=== PATIENT | female | born 1960 | race African-American/Black ===

== ENCOUNTER 2016-06-09 10:55 | Day surgery (SDC) | payer OTHER ==
[2016-06-08 11:43] VITALS: BMI 33.1
[2016-06-08 11:45] VITALS: BP 155/86; PULSE 65
--- NOTE | 2016-06-08 17:59 | PREOPHP ---
DATE OF ADMISSION: 06/09/2016 REASON FOR ADMISSION: The patient will be admitted tomorrow for a total vaginal hysterectomy, anter ior repair and Melida plication. HISTORY OF PRESENT ILLNESS: This is a 55-year-old female, 5, para 2, with 3 therapeutic abo rtions, who has been menopausal for several years and been complaining of leaking urine with moderat e efforts. She was also found to have a fibroid in the uterus. She specifically has asked to have a hysterectomy at the time of the anterior repair that had been planned before her cystocele and uri nary incontinence. Alternatives, benefits of the procedures, the risks, and possible complications were discussed in detail in the office. The decision-making process was started. She was shown gra phically what it entails to have the uterus removed and anterior repair. She was told that she may need to wear a Velazquez catheter for a few days at home. All her questions were answered to her satisf action and she signed the appropriate surgical informed consent. 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 She has had a cholecystectomy. She is a chronic hypertensive, under treatment, not well co ntrolled. Denies any other medical problems including diabetes, renal disease, liver disease, thyro id disease and neurological problems. ALLERGIES: NO KNOWN ALLERGIES. FAMILY HISTORY: Noncontributory. REVIEW OF SYSTEMS: A 12-point review of systems is noncontributory. PHYSICAL EXAMINATION: GENERAL: Well-developed, obese, in no distress, alert and oriented x3, with height 5 feet 2 inches and a weight of 194 pounds. VITAL SIGNS: Showed temperature to be 98, blood pressure 161/98, respirations are 16 per minute, th e pulse is 72 per minute regular. HEENT: Within normal limits. Pupils are PERRLA. NECK: Supple. Thyroid is nonpalpable. Lymph nodes are not palpable. BREASTS: Show no masses or lumps and nipples normal. LUNGS: Clear to percussion and auscultation. HEART: Normal sinus rhythm without a murmur. ABDOMEN: Soft without organomegalies or hernias. Obese. PELVIC: Normal external genitalia. Cervix is very atrophic small with no lesions. Bimanual: Smal l fibroid in the fundus and the uterus mobile. There are no adnexal masses. EXTREMITIES: Lower extremities are within normal limits. NEUROLOGIC: Also normal. IMPRESSION: 1. Stress urinary incontinence. 2. Cystocele. Uterine fibroids. 3. Chronic hypertension. 4. Obesity. PLAN: Total vaginal hysterectomy, anterior repair and Melida plication. Dictated By: RICKEY GONZALEZ MD CR/NTS Conf#: [id number] DID#: [id number] CC: JYOTHI ESTEVES MD;*EndCC*
[~2016-06-09] VITALS: Ht 157.5 cm; Wt 89.9 kg
[2016-06-09] VITALS (22 sets, daily range): BP systolic 93–180; BP diastolic 64–92; PULSE 62–89; RESP 16–26; Ht 157.5 cm; Wt 89.9 kg
[~2016-06-09 10:55] MED LIST: LACTATED RINGER'S 1,000 ML IV* SCH; LOSA50TA6 PO
[2016-06-09] MEDS ORDERED: BUPIVACAINE 0.5%/EPI (SDV) 30 ML INJ ONE (13:04)
[2016-06-09] MEDS ORDERED: VASOPRESSIN 20 UNITS INJ ONE (13:05)
[2016-06-09] MEDS ORDERED: MIDAZOLAM 1 MG/ML 2 ML INJ ONE (13:20)
[2016-06-09] MEDS ORDERED: PROPOFOL 20 ML ONE ×2 (13:20→14:00)
[2016-06-09] MEDS ORDERED: METOCLOPRAMIDE 10 MG INJ ONE (13:20)
[2016-06-09] MEDS ORDERED: KETOROLAC 30 MG INJ ONE (13:21)
[2016-06-09] MEDS ORDERED: ROPIVACAINE 0.2% 20 ML VIAL ONE (13:47)
[2016-06-09] MEDS ORDERED: FENTAnyl 50 MCG/ML VIAL ONE (13:47)
[2016-06-09] MEDS ORDERED: CEFAZOLIN 1 GM INJ ONE (13:48)
[2016-06-09] MEDS ORDERED: HYDROmorphONE 2 MG/ML SYG ONE (14:13)
[2016-06-09] MEDS ORDERED: BUPIVACAINE 0.5%/EPI (SDV) 30 ML INJ INJ ONE (14:22)
[2016-06-09] MEDS ORDERED: VASOPRESSIN 20 UNITS INJ IV ONE (14:22)
[2016-06-09] MEDS ORDERED: HYDROmorphONE (0.2 MG/ML) 10ML SYG IV PRN ×2 (14:30)
[2016-06-09] MEDS ORDERED: DIPHENHYDRAMINE 50 MG INJ IV PRN (14:30)
[2016-06-09] MEDS ORDERED: ONDANSETRON 4 MG INJ IV PRN ×3 (14:30→16:00)
[2016-06-09] MEDS ORDERED: MEPERIDINE 25 MG INJ IV PRN (14:30)
[2016-06-09] MEDS ORDERED: METOCLOPRAMIDE 10 MG INJ IV PRN (14:30)
[2016-06-09] MEDS ORDERED: morphine SULFATE/PF (10 MG/10 ML) INJ ONE (15:12)
[2016-06-09] MEDS ORDERED: ACETAMINOPHEN 1000MG/100ML IV 100 ML ONE (15:12)
[2016-06-09] MEDS ORDERED: HYDROmorphONE 1 MG/ML SYG IV PRN ×3 (15:30)
[2016-06-09] MEDS ORDERED: NALOXONE (0.4 MG/ML) INJ IV PRN (15:30)
[2016-06-09] MEDS ORDERED: KETOROLAC 30 MG INJ IV PRN (15:30)
[2016-06-09] MEDS ORDERED: FENTAnyl 2MCG/ML-ROPIV 0.2% 100 ML BAG EPI SCH (15:30)
[2016-06-09] MEDS ORDERED: IBUPROFEN 600 MG TAB PO PRN (16:00)
[2016-06-09] MEDS ORDERED: ACETAMINOPHEN 325 MG TAB PO PRN (16:00)
[2016-06-09] MEDS ORDERED: OXYCODONE/ACETAMINOPHEN (5/325) TAB PO PRN (16:00)
[2016-06-09] MEDS: HYDROmorphONE (0.2 MG/ML) 10ML SYG IV PRN ×3 (16:26→16:43)
[2016-06-09] MEDS: ACETAMINOPHEN 1000MG/100ML IV 100 ML IVPB SCH ×2 (17:13→21:48)
--- NOTE | 2016-06-09 18:39 | OPR ---
DATE OF OPERATION: 06/09/2016 PREOPERATIVE DIAGNOSES: 1. Stress urinary incontinence. 2. Cystocele. 3. Uterine fibroids. 4. Chronic pelvic pain. POSTOPERATIVE DIAGNOSES: 1. Stress urinary incontinence. 2. Cystocele. 3. Uterine fibroids. 4. Chronic pelvic pain. OPERATION PERFORMED: Total vaginal hysterectomy, anterior repair with Melida plication. SURGEON: Rickey Fox MD. HIDE AND SKIN COLERER: JYOTHI ESTEVES MD. ANESTHESIA: Epidural and general. ANESTHESIOLOGIST: DEIDRA FRANCO MD. ESTIMATED BLOOD LOSS: 150 mL. COMPLICATIONS: None. SPECIMENS: Uterus. PROCEDURE AND FINDINGS: With the patient under epidural anesthesia and general anesthesia, she was laying on the table in the dorsal lithotomy position. Her abdomen and upper thighs were prepped wit h ChloraPrep and the perineum and vagina with Betadine. After 3 minutes, she was draped in the usua l sterile fashion for this procedure. She had a Velazquez catheter draining her bladder. A weighted po sterior retractor was placed in the posterior vaginal wall. The anterior lip of the cervix grasped with a Juventino clamp. The cervix was infiltrated with vasopressin 20 units diluted in 40 mL of saline of which half was used. Marcaine 0.5% with epinephrine also was used in the vaginal mucosa. The v aginal mucosa around the cervix was opened circumferentially. The endopelvic fascia was opened with scissors circumferentially also. The posterior cul-de-sac of Sawyer was entered with no problems. There were no adhesions of disease there. A longer deep weighted retractor was then inserted. Th e left uterosacral ligament was then identified, clamped with a Francisca clamp, cut and sutured with 0 Vicryl. This was held for reference. The cardinal ligament of the same side was then identified, clamped with Francisca clamp, cut and sutured with 0 Vicryl. The same was done on the contralateral si de. The anterior peritoneum was entered without any problems. By palpating and visualizing, this w as ascertained by the test desk operator. The uterine pedicles were identified on both sides. The left side was clamped first with Francisca clamps, cut and sutured twice with 2 sutures of 0 Vicryl. The same wa s done on the contralateral side. Then, the uterus was grasped with a towel clip in the fundus of t he uterus and was inverted out. The upper pedicle on the left side composed of the 2, the round lig ament and utero-ovarian ligament was held by Francisca clamp, cut and sutured twice with 0 Vicryl and h eld for reference. The same was done on the contralateral side and the specimen removed. There was no active bleeding from any of the pedicles. The shorter weighted retractor was placed in the post erior vaginal wall. The posterior leaf of the vaginal mucosa was then sutured with a continuous run man stitch of 2-0 chromic catgut to the peritoneal surface. Good hemostasis was obtained. The cul -de-sac of Sawyer was closed high by raising the suture of 0 Vicryl on the perineal surfaces, obtur ating possible enterocele. Both uterosacral ligaments were tied in the center. The vagina the muco sa was then closed with separate [id number] sutures of 0 Vicryl. Good hemostasis was observed. The vagina was profusely washed with warm saline. There was no active bleeding was seen. Anterio r repair was started by holding the edges of the vaginal mucosa with Allis clamps. It was infiltrat ed with a solution of 0.5% Marcaine with epinephrine, a total of 10 mL. The vaginal mucosa was open ed anteriorly in an inverted T fashion. The endopelvic fascia was dissected away from it bilaterall y. The urethrovesical angle was then identified by pulling slightly on the Velazquez filling the balloo n. Then, Melida plication was done with 1 single stitch of 0 Vicryl and was tied in the center. The excessive vaginal mucosa was then removed. The incision was closed with separate sutures of 0 Vicr yl. There was no active bleeding. There was abundant clear urine in the Velazquez bag. The vagina was profusely washed with warm saline and was suctioned out. No bleeding was observed. All the instru ments were then removed from the patient's vagina. The patient was taken to recovery room with all vital signs stable. ESTIMATED BLOOD LOSS: 150 mL of blood. Needle, sponge and instrument count at the end of the procedure was correct x3. Dictated By: RICKEY SU/ALISSON Conf#: [id number] DID#: [id number] CC: DEIDRA FRANCO MD; JYOTHI ESTEVES MD;*EndCC*
[2016-06-09] MEDS: LACTATED RINGER'S 1,000 ML IV SCH (18:41)
--- NOTE | 2016-06-09 19:33 | QN ---
Documentation Comment HTN HCX CHOLECYSTECTOMY HYSTERECTOMY PLAN PER ORDER NERI WINTERS MD Jun 09, 2016 19:33
[2016-06-09] MEDS: DIPHENHYDRAMINE 50 MG INJ IV PRN ×2 (19:44→23:59)
[2016-06-09] MEDS ORDERED: ROPIVACAINE 0.2% 100 ML INJ EPI SCH (21:30)
[2016-06-09] MEDS ORDERED: ROPIVACAINE 0.2% EPI SCH ×2 (22:00)
[2016-06-09] MEDS ORDERED: ROPIVACAINE 0.2% 100ML BAG EPI SCH (22:00)
[2016-06-09] MEDS: CEFAZOLIN 2 GM/50 ML (PMX) 50 ML IVPB SCH (22:14)
--- NOTE | 2016-06-09 23:09 | QN ---
Documentation Comment [id number] NERI WINTERS MD Jun 09, 2016 23:08
[2016-06-10] VITALS: BP 111/67; PULSE 83; RESP 18
[2016-06-10] MEDS: DIPHENHYDRAMINE 50 MG INJ IV PRN (04:49)
[2016-06-10] MEDS: ACETAMINOPHEN 1000MG/100ML IV 100 ML IVPB SCH ×4 (04:49→21:44)
--- NOTE | 2016-06-10 05:06 | CONS ---
DATE OF ADMISSION: 06/09/2016 DATE OF CONSULTATION: 06/09/2016 TYPE OF CONSULTATION: Nephrology. Thank you, Dr. Km Fox, for kindly asking me to see this patient in consultation. HISTORY OF PRESENT ILLNESS: The patient with a history of cholecystectomy, history of cervical canc er and surgery. The patient has history of stress urinary incontinence . The patient had a ut erine fibroid, chronic pelvic pain, and underwent total vaginal hysterectomy, anterior repair with K eran plication, and patient is going to be monitored. The patient has history of hypertension, but blood pressure is controlled. She does not know the name of medicine. History of cholecystectomy. ALLERGY HISTORY: DENIES. SOCIAL HISTORY: History of smoking and drinking socially. FAMILY HISTORY: Noncontributory. MEDICATION HISTORY: At home, the patient is on Losartan. The patient's blood pressure right now is 115/64. PAST SURGICAL HISTORY: As mentioned above. REVIEW OF SYSTEMS: HEENT: Unremarkable. RESPIRATORY: Unremarkable. CARDIOVASCULAR: Unremarkable. ABDOMEN: Mild lower abdominal pain. EXTREMITIES: Unremarkable. PHYSICAL EXAMINATION: GENERAL: The patient is awake, alert, not in any acute respiratory distress. VITAL SIGNS: Stable. Pulse 76, blood pressure 115/64. HEAD: Atraumatic, normocephalic. Pupils equal and reactive to light. NECK: Supple. No JVD. LUNGS: Clear. CARDIOVASCULAR: S1, S2 are normal. ABDOMEN: Soft, nontender. Bowel sounds positive. EXTREMITIES: No cyanosis, clubbing, edema. CENTRAL NERVOUS SYSTEM: The patient is awake, alert, no focal deficit. LABORATORY DATA: Reviewed from outside lab. IMPRESSION: 1. Status post vaginal hysterectomy. 2. Hypertension history. 3. History of cholecystectomy. 4. Stress incontinence history. OTHER DIAGNOSES: 1. Cystocele. 2. Uterine fibroids. 3. Chronic pelvic pain. PLAN: To continue current treatment and incentive spirometry. Blood pressure is stable at this do e. Blood pressure medicine is going to be started if needed. Laboratory data in the morning. Thank you, Dr. Km Fox, for kindly asking me to see this patient in nephrology consultation . Dictated By: NERI WINTERS MD BS/NTS Conf#: [id number] DID#: [id number]
[2016-06-10 05:50] LABS: BASOPHILS % 0.3 % (0.0-2.0); EOSINOPHILS % 0.1 % (0.0-7.0); HEMATOCRIT 33.8 % (37.0-47.0); HEMOGLOBIN 11.4 g/dl (12.0-16.0); LYMPHOCYTES # 1.6 10^3/ul (0.8-2.9); LYMPHOCYTES % 15.7 % (15.0-51.0); MEAN CORPUSCULAR HEMOGLOBIN 31.7 pg (29.0-33.0); MEAN CORPUSCULAR HGB CONC 33.7 g/dl (32.0-37.0); MEAN CORPUSCULAR VOLUME 94.1 fl (82.0-101.0); MONOCYTE # 0.8 10^3/ul (0.3-0.9); MONOCYTES % 7.3 % (0.0-11.0); NEUTROPHILS % 76.6 % (39.0-77.0); PLATELET COUNT 226 10^3/UL (140-440); RED BLOOD COUNT 3.59 10^6/ul (4.20-5.40); RED CELL DISTRIBUTION WIDTH 13.7 % (11.5-14.5); UNCORRECTED WBC 10.5 10^3/ul (4.8-10.8); WHITE BLOOD COUNT 10.5 10^3/ul (4.8-10.8)
[2016-06-10 05:58] LABS: POTASSIUM 4.3 mmol/L (3.5-5.1)
[2016-06-10 06:00] LABS: CREATININE 0.83 mg/dl (0.44-1.00)
[2016-06-10 06:02] LABS: CALCIUM 9.3 mg/dl (8.4-10.2)
[2016-06-10] MEDS: KETOROLAC 30 MG INJ IV PRN ×3 (06:07→21:44)
[2016-06-10] MEDS: CEFAZOLIN 2 GM/50 ML (PMX) 50 ML IVPB SCH ×2 (06:07→14:16)
[2016-06-10 06:14] VITALS: BP 124/62; PULSE 82; RESP 18
[2016-06-10 06:45] LABS: CONDITION 1
[2016-06-10] MEDS: PANTOPRAZOLE 40 MG INJ IV SCH (07:03)
--- NOTE | 2016-06-10 07:21 | PN ---
Date/Time of Note Date/Time of Note DATE: 06/10/16 TIME: 07:18 Assessment/Plan VTE Prophylaxis VTE Prophylaxis Intervention: ambulation, anti-embolic stocking Lines/Catheters IV Catheter Type (from Nrsg): Saline Lock Urinary Cath still in place: Yes Assessment/Plan Chief Complaint/Hosp Course Afebrile.WBC 10., Hemoglobin 11.4 Complains of itching. Problems: Assessment/Plan Itching secondary to Duramorph. Nubain 4 mg Cont'd Hospitalization Reason: Still requires IV pain meds. Exam/Review of Systems Vital Signs Vitals Vital Signs Date Time Temp Pulse Resp B/P Pulse Ox O2 Delivery O2 Flow Rate FiO2 06/10/16 06:14 98.2 82 18 124/62 98 Room Air 06/10/16 00:00 2.0 Intake and Output 06/09/16 06/09/16 06/10/16 14:59 22:59 06:59 Intake Total 0 ml Balance 0 ml Results Result Diagram: 06/10/16 0415 06/10/16 0415 Results 24 hrs Laboratory Tests Test 06/10/16 04:15 Anion Gap 12 Basophils # 0.0 Basophils % 0.3 Blood Urea Nitrogen 16 Calcium Level 9.3 Carbon Dioxide Level 28 Chloride Level 109 Creatinine 0.83 Eosinophils # 0.0 Eosinophils % 0.1 Glucose Level 90 Hematocrit 33.8 L Hemoglobin 11.4 L Lymphocytes # 1.6 Lymphocytes % 15.7 Mean Corpuscular Hemoglobin 31.7 Mean Corpuscular Hemoglobin Concent 33.7 Mean Corpuscular Volume 94.1 Mean Platelet Volume 9.0 Monocytes # 0.8 Monocytes % 7.3 Neutrophils # 8.0 H Neutrophils % 76.6 Nucleated Red Blood Cells # 0.0 Nucleated Red Blood Cells % 0.0 Platelet Count 226 Potassium Level 4.3 Red Blood Count 3.59 L Red Cell Distribution Width 13.7 Sodium Level 145 H White Blood Count 10.5 Medications Medications Current Medications Hydromorphone HCl (Dilaudid) 1 mg Q2 PRN IV BREAKTHROUGH PAIN; Start 06/09/16 at 15:30 Hydromorphone HCl (Dilaudid) 0.2 mg Q2H PRN IV PAIN LEVEL 1-5; Start 06/09/16 at 15:30 Hydromorphone HCl (Dilaudid) 0.4 mg Q2H PRN IV PAIN LEVEL 6-10; Start 06/09/16 at 15:30 Diphenhydramine HCl (Benadryl) 25 mg Q4H PRN IV PRURITUS Last administered on 04:49; Admin Dose 25 MG; Start 06/09/16 at 15:30 Naloxone HCl 0.2 mg 0.2 mg Q2M PRN IV FOR RESP RATE 8 OR LESS; Start 06/09/16 at 15:30 Lactated Ringer's 1,000 ml @ 100 mls/hr Q10H IV Last administered on 00:00; Admin Dose 100 MLS/HR; Start 06/09/16 at 15:53 Cefazolin Sodium/ Dextrose (Ancef 2 Gm/50 ml (Pmx)) 50 ml @ 100 mls/hr Q8 IVPB Last administered on 06/10/16 06:07; Admin Dose 100 MLS/HR; Start 06/09/16 at 22:00; Stop 06/10/16 at 14:29 Acetaminophen (Tylenol Tab) 650 mg Q4H PRN PO PAIN LEVEL 1-5; Start 06/09/16 at 16:00; Status Future Hold Ibuprofen (Motrin) 600 mg Q8H PRN PO PAIN AND OR ELEVATED TEMP; Start 06/09/16 at 16:00 Oxycodone/ Acetaminophen (Percocet (5/ 325)) 1 tab Q4H PRN PO PAIN LEVEL 6-10; Start 06/09/16 at 16:00 Ondansetron HCl (Zofran Inj) 4 mg Q6H PRN IV NAUSEA AND/OR VOMITING; Start at 16:00 Oxycodone/ Acetaminophen (Percocet (5/ 325)) 2 tab Q4H PRN PO PAIN; Start 06/09 at 16:00 Ketorolac Tromethamine 30 mg 30 mg Q6H PRN IV PAIN Last administered on 06:07; Admin Dose 30 MG; Start 06/09/16 at 16:00; Stop 06/12/16 at 15:59 Acetaminophen (Ofirmev 1000mg/ 100ml Iv) 100 ml @ 400 mls/hr Q6H IVPB Last administered on 06/10/16 04:49; Admin Dose 400 MLS/HR; Start 06/09/16 at 16:00 Pantoprazole (Protonix Iv) 40 mg DAILY@06 IV Last administered on 06/10/16t 07: 03; Admin Dose 40 MG; Start 06/10/16 at 06:00 RICKEY GONZALEZ MD Jun 10, 2016 07:21
[2016-06-10 07:42] VITALS: BP 142/79; RESP 18
[2016-06-10] MEDS: NALBUPHINE HCL (10 MG/1 ML) INJ IV PRN ×4 (08:06→21:05)
[2016-06-10] MEDS: OXYCODONE/ACETAMINOPHEN (5/325) TAB PO PRN ×3 (08:07→16:44)
[2016-06-10] MEDS: ENOXAPARIN 40 MG/0.4 ML SYG SC SCH (09:00)
[2016-06-10] MEDS: LACTATED RINGER'S 1,000 ML IV SCH ×2 (11:53)
--- NOTE | 2016-06-10 12:50 | PN ---
Date/Time of Note Date/Time of Note DATE: 06/10/16 TIME: 12:48 Assessment/Plan VTE Prophylaxis VTE Prophylaxis Intervention: SCD's Lines/Catheters IV Catheter Type (from Nrsg): Saline Lock Central line still needed: No Urinary Cath still in place: Yes Subjective 24 Hr Interval Summary Free Text/Dictation A55 y female S/P vafinal hysterectomy, POD 1 pt had complain of itching , ropi/ fent was changed ro ropiv still complaining evn after given Benedryl., epi catheter was removed, pain is controlled. itching controlled by Nalbufin. NO headache or N/V. V/S stable. Exam/Review of Systems Vital Signs Vitals Vital Signs Date Time Temp Pulse Resp B/P Pulse Ox O2 Delivery O2 Flow Rate FiO2 06/10/16 07:42 99.0 77 18 142/79 96 06/10/16 06:14 Room Air 06/10/16 00:00 2.0 Intake and Output 06/09/16 06/09/16 06/10/16 15:00 23:00 07:00 Intake Total 150 ml 1750 ml Output Total 1000 ml Balance 150 ml 750 ml Results Result Diagram: 06/10/16 0415 06/10/16 0415 Results 24 hrs Laboratory Tests Test 06/10/16 04:15 Anion Gap 12 Basophils # 0.0 Basophils % 0.3 Blood Urea Nitrogen 16 Calcium Level 9.3 Carbon Dioxide Level 28 Chloride Level 109 Creatinine 0.83 Eosinophils # 0.0 Eosinophils % 0.1 Glucose Level 90 Hematocrit 33.8 L Hemoglobin 11.4 L Lymphocytes # 1.6 Lymphocytes % 15.7 Mean Corpuscular Hemoglobin 31.7 Mean Corpuscular Hemoglobin Concent 33.7 Mean Corpuscular Volume 94.1 Mean Platelet Volume 9.0 Monocytes # 0.8 Monocytes % 7.3 Neutrophils # 8.0 H Neutrophils % 76.6 Nucleated Red Blood Cells # 0.0 Nucleated Red Blood Cells % 0.0 Platelet Count 226 Potassium Level 4.3 Red Blood Count 3.59 L Red Cell Distribution Width 13.7 Sodium Level 145 H White Blood Count 10.5 Medications Medications Current Medications Hydromorphone HCl (Dilaudid) 1 mg Q2 PRN IV BREAKTHROUGH PAIN; Start 06/09/16 at 15:30 Hydromorphone HCl (Dilaudid) 0.2 mg Q2H PRN IV PAIN LEVEL 1-5; Start 06/09/16 at 15:30 Hydromorphone HCl (Dilaudid) 0.4 mg Q2H PRN IV PAIN LEVEL 6-10; Start 06/09/16 at 15:30 Diphenhydramine HCl (Benadryl) 25 mg Q4H PRN IV PRURITUS Last administered on 04:49; Admin Dose 25 MG; Start 06/09/16 at 15:30 Naloxone HCl 0.2 mg 0.2 mg Q2M PRN IV FOR RESP RATE 8 OR LESS; Start 06/09/16 at 15:30 Lactated Ringer's 1,000 ml @ 100 mls/hr Q10H IV Last administered on 00:00; Admin Dose 100 MLS/HR; Start 06/09/16 at 15:53 Cefazolin Sodium/ Dextrose (Ancef 2 Gm/50 ml (Pmx)) 50 ml @ 100 mls/hr Q8 IVPB Last administered on 06/10/16 06:07; Admin Dose 100 MLS/HR; Start 06/09/16 at 22:00; Stop 06/10/16 at 14:29 Acetaminophen (Tylenol Tab) 650 mg Q4H PRN PO PAIN LEVEL 1-5; Start 06/09/16 at 16:00; Status Future Hold Ibuprofen (Motrin) 600 mg Q8H PRN PO PAIN AND OR ELEVATED TEMP; Start 06/09/16 at 16:00 Oxycodone/ Acetaminophen (Percocet (5/ 325)) 1 tab Q4H PRN PO PAIN LEVEL 6-10; Start 06/09/16 at 16:00 Ondansetron HCl (Zofran Inj) 4 mg Q6H PRN IV NAUSEA AND/OR VOMITING; Start at 16:00 Oxycodone/ Acetaminophen (Percocet (5/ 325)) 2 tab Q4H PRN PO PAIN Last administered on 06/10/16 11:54; Admin Dose 2 TAB; Start 06/09/16 at 16:00 Ketorolac Tromethamine 30 mg 30 mg Q6H PRN IV PAIN Last administered on 06:07; Admin Dose 30 MG; Start 06/09/16 at 16:00; Stop 06/12/16 at 15:59 Acetaminophen (Ofirmev 1000mg/ 100ml Iv) 100 ml @ 400 mls/hr Q6H IVPB Last administered on 06/10/16 09:28; Admin Dose 400 MLS/HR; Start 06/09/16 at 16:00 Pantoprazole (Protonix Iv) 40 mg DAILY@06 IV Last administered on 06/10/16 07: 03; Admin Dose 40 MG; Start 06/10/16 at 06:00 Nalbuphine HCl (Nubain) 4 mg Q4H PRN IV PRURITUS Last administered on 11:52; Admin Dose 4 MG; Start 06/10/16 at 07:30 Enoxaparin Sodium (Lovenox) 40 mg DAILY SC Last administered on 06/10/16 09:00 ; Admin Dose 40 MG; Start 06/10/16 at 09:00 DEIDRA FRANCO MD Jun 10, 2016 12:50
[2016-06-10 19:19] VITALS: BP 150/72; RESP 20
--- NOTE | 2016-06-10 20:29 | PN ---
Date/Time of Note Date/Time of Note DATE: 06/10/16 TIME: 20:28 Assessment/Plan VTE Prophylaxis VTE Prophylaxis Intervention: other Lines/Catheters IV Catheter Type (from Nrsg): Saline Lock Urinary Cath still in place: Yes Reason Cath still needed: other (indicate) Assessment/Plan Chief Complaint/Hosp Course IMPRESSION: 1. Status post vaginal hysterectomy. 2. Hypertension history. 3. History of cholecystectomy. 4. Stress incontinence history. plan ck labs per baggage checker Problems: Subjective 24 Hr Interval Summary Subjective hx not possible: other (s/p itching and nausea) Cardiovascular: no complaints Gastrointestinal: no complaints Exam/Review of Systems Vital Signs Vitals Vital Signs Date Time Temp Pulse Resp B/P Pulse Ox O2 Delivery O2 Flow Rate FiO2 06/10/16 19:19 98.5 80 20 150/72 93 06/10/16 06:14 Room Air 06/10/16 00:00 2.0 Intake and Output 06/09/16 06/09/16 06/10/16 15:00 23:00 07:00 Intake Total 150 ml 1750 ml Output Total 1000 ml Balance 150 ml 750 ml Exam Respiratory: clear to auscultation Cardiovascular: regular rate and rhythm Gastrointestinal: bowel sounds (+), soft Results Result Diagram: 06/10/16 0415 06/10/16 0415 Results 24 hrs Laboratory Tests Test 06/10/16 04:15 Anion Gap 12 Basophils # 0.0 Basophils % 0.3 Blood Urea Nitrogen 16 Calcium Level 9.3 Carbon Dioxide Level 28 Chloride Level 109 Creatinine 0.83 Eosinophils # 0.0 Eosinophils % 0.1 Glucose Level 90 Hematocrit 33.8 L Hemoglobin 11.4 L Lymphocytes # 1.6 Lymphocytes % 15.7 Mean Corpuscular Hemoglobin 31.7 Mean Corpuscular Hemoglobin Concent 33.7 Mean Corpuscular Volume 94.1 Mean Platelet Volume 9.0 Monocytes # 0.8 Monocytes % 7.3 Neutrophils # 8.0 H Neutrophils % 76.6 Nucleated Red Blood Cells # 0.0 Nucleated Red Blood Cells % 0.0 Platelet Count 226 Potassium Level 4.3 Red Blood Count 3.59 L Red Cell Distribution Width 13.7 Sodium Level 145 H White Blood Count 10.5 Medications Medications Current Medications Hydromorphone HCl (Dilaudid) 1 mg Q2 PRN IV BREAKTHROUGH PAIN; Start 06/09/16 at 15:30 Hydromorphone HCl (Dilaudid) 0.2 mg Q2H PRN IV PAIN LEVEL 1-5; Start 06/09/16 at 15:30 Hydromorphone HCl (Dilaudid) 0.4 mg Q2H PRN IV PAIN LEVEL 6-10; Start 06/09/16 at 15:30 Diphenhydramine HCl (Benadryl) 25 mg Q4H PRN IV PRURITUS Last administered on 04:49; Admin Dose 25 MG; Start 06/09/16 at 15:30 Naloxone HCl 0.2 mg 0.2 mg Q2M PRN IV FOR RESP RATE 8 OR LESS; Start 06/09/16 at 15:30 Lactated Ringer's (Lr) 1,000 ml @ 100 mls/hr Q10H IV Last administered on 06/10 00:00; Admin Dose 100 MLS/HR; Start 06/09/16 at 15:53 Acetaminophen (Tylenol Tab) 650 mg Q4H PRN PO PAIN LEVEL 1-5; Start 06/09/16 at 16:00; Status Future Hold Ibuprofen (Motrin) 600 mg Q8H PRN PO PAIN AND OR ELEVATED TEMP; Start 06/09/16 at 16:00 Oxycodone/ Acetaminophen (Percocet (5/ 325)) 1 tab Q4H PRN PO PAIN LEVEL 6-10; Start 06/09/16 at 16:00 Ondansetron HCl (Zofran Inj) 4 mg Q6H PRN IV NAUSEA AND/OR VOMITING; Start at 16:00 Oxycodone/ Acetaminophen (Percocet (5/ 325)) 2 tab Q4H PRN PO PAIN Last administered on 06/10/16 16:44; Admin Dose 2 TAB; Start 06/09/16 at 16:00 Ketorolac Tromethamine 30 mg 30 mg Q6H PRN IV PAIN Last administered on 15:20; Admin Dose 30 MG; Start 06/09/16 at 16:00; Stop 06/12/16 at 15:59 Acetaminophen (Ofirmev 1000mg/ 100ml Iv) 100 ml @ 400 mls/hr Q6H IVPB Last administered on 06/10/16 16:54; Admin Dose 400 MLS/HR; Start 06/09/16 at 16:00 Pantoprazole (Protonix Iv) 40 mg DAILY@06 IV Last administered on 06/10/16 07: 03; Admin Dose 40 MG; Start 06/10/16 at 06:00 Nalbuphine HCl (Nubain) 4 mg Q4H PRN IV PRURITUS Last administered on 16:45; Admin Dose 4 MG; Start 06/10/16 at 07:30 Enoxaparin Sodium (Lovenox) 40 mg DAILY SC Last administered on 06/10/16 09:00 ; Admin Dose 40 MG; Start 06/10/16 at 09:00 NERI WINTERS MD Jun 10, 2016 20:29
[2016-06-11] MEDS: OXYCODONE/ACETAMINOPHEN (5/325) TAB PO PRN ×3 (00:06→14:53)
[2016-06-11] MEDS: NALBUPHINE HCL (10 MG/1 ML) INJ IV PRN (01:43)
[2016-06-11] MEDS: LACTATED RINGER'S 1,000 ML IV SCH ×2 (02:07→09:28)
[2016-06-11] MEDS: ACETAMINOPHEN 1000MG/100ML IV 100 ML IVPB SCH ×2 (04:28→09:20)
[2016-06-11] MEDS ORDERED: VITAMIN A & D 5 GM OINT PACKET TOP ONE (05:30)
[2016-06-11 05:43] LABS: BASOPHILS % 0.5 % (0.0-2.0); EOSINOPHILS # 0.1 10^3/ul (0.0-0.5); EOSINOPHILS % 1.7 % (0.0-7.0); HEMATOCRIT 32.1 % (37.0-47.0); HEMOGLOBIN 10.9 g/dl (12.0-16.0); LYMPHOCYTES # 3.2 10^3/ul (0.8-2.9); LYMPHOCYTES % 38.7 % (15.0-51.0); MEAN CORPUSCULAR HEMOGLOBIN 32.3 pg (29.0-33.0); MEAN CORPUSCULAR HGB CONC 33.9 g/dl (32.0-37.0); MEAN CORPUSCULAR VOLUME 95.1 fl (82.0-101.0); MEAN PLATELET VOLUME 9.2 fl (7.4-10.4); MONOCYTE # 0.8 10^3/ul (0.3-0.9); MONOCYTES % 9.3 % (0.0-11.0); NEUTROPHIL # 4.1 10^3/ul (1.6-7.5); NEUTROPHILS % 49.8 % (39.0-77.0); PLATELET COUNT 200 10^3/UL (140-440); RED BLOOD COUNT 3.37 10^6/ul (4.20-5.40); RED CELL DISTRIBUTION WIDTH 14.2 % (11.5-14.5); UNCORRECTED WBC 8.2 10^3/ul (4.8-10.8); WHITE BLOOD COUNT 8.2 10^3/ul (4.8-10.8)
[2016-06-11] MEDS: PANTOPRAZOLE 40 MG INJ IV SCH (05:47)
[2016-06-11 06:14] LABS: CONDITION 1
[2016-06-11 08:00] VITALS: BP 162/87; PULSE 87
[2016-06-11 08:11] VITALS: BP 174/96; RESP 21
[2016-06-11] MEDS: ENOXAPARIN 40 MG/0.4 ML SYG SC SCH (09:23)
[2016-06-11] MEDS: KETOROLAC 30 MG INJ IV PRN (09:28)
--- NOTE | 2016-06-11 11:23 | CONS ---
Date/Time of Note Date/Time of Note DATE: 06/11/16 TIME: 11:17 Assessment/Plan Assessment/Plan Additional Assessment/Plan 1. Status post vaginal hysterectomy. 2. Hypertension history. 3. History of cholecystectomy. 4. Stress incontinence history. Plan: continue current care pain controlled, BP not well controlled, Resume her home medication of losartan , Hydralazine prn will follow up Consultation Date/Type/Reason Admit Date/Time Jun 09, 2016 at 18:23 Initial Consult Date Exam/Review of Systems Vital Signs Vitals Vital Signs Date Time Temp Pulse Resp B/P Pulse Ox O2 Delivery O2 Flow Rate FiO2 06/11/16 08:11 98.2 65 21 174/96 93 06/10/16 06:14 Room Air 06/10/16 00:00 2.0 Intake and Output 06/10/16 06/10/16 06/11/16 15:00 23:00 07:00 Intake Total 1450 ml 1800 ml Output Total 1300 ml 800 ml Balance 150 ml 1000 ml Results Result Diagram: 06/11/16 0435 06/10/16 0415 Results 24 hrs Laboratory Tests Test 06/11/16 04:35 Basophils # 0.0 Basophils % 0.5 Eosinophils # 0.1 Eosinophils % 1.7 Hematocrit 32.1 L Hemoglobin 10.9 L Lymphocytes # 3.2 H Lymphocytes % 38.7 Mean Corpuscular Hemoglobin 32.3 Mean Corpuscular Hemoglobin Concent 33.9 Mean Corpuscular Volume 95.1 Mean Platelet Volume 9.2 Monocytes # 0.8 Monocytes % 9.3 Neutrophils # 4.1 Neutrophils % 49.8 Nucleated Red Blood Cells # 0.0 Nucleated Red Blood Cells % 0.0 Platelet Count 200 Red Blood Count 3.37 L Red Cell Distribution Width 14.2 White Blood Count 8.2 # Medications Medications Current Medications Hydromorphone HCl (Dilaudid) 1 mg Q2 PRN IV BREAKTHROUGH PAIN; Start 06/09/16 at 15:30 Hydromorphone HCl (Dilaudid) 0.2 mg Q2H PRN IV PAIN LEVEL 1-5; Start 06/09/16 at 15:30 Hydromorphone HCl (Dilaudid) 0.4 mg Q2H PRN IV PAIN LEVEL 6-10; Start 06/09/16 at 15:30 Diphenhydramine HCl (Benadryl) 25 mg Q4H PRN IV PRURITUS Last administered on 04:49; Admin Dose 25 MG; Start 06/09/16 at 15:30 Naloxone HCl 0.2 mg 0.2 mg Q2M PRN IV FOR RESP RATE 8 OR LESS; Start 06/09/16 at 15:30 Lactated Ringer's (Lr) 1,000 ml @ 100 mls/hr Q10H IV Last administered on 06/11 09:28; Admin Dose 100 MLS/HR; Start 06/09/16 at 15:53 Acetaminophen (Tylenol Tab) 650 mg Q4H PRN PO PAIN LEVEL 1-5; Start 06/09/16 at 16:00; Status Future Hold Ibuprofen (Motrin) 600 mg Q8H PRN PO PAIN AND OR ELEVATED TEMP; Start 06/09/16 at 16:00 Oxycodone/ Acetaminophen (Percocet (5/ 325)) 1 tab Q4H PRN PO PAIN LEVEL 6-10; Start 06/09/16 at 16:00 Ondansetron HCl (Zofran Inj) 4 mg Q6H PRN IV NAUSEA AND/OR VOMITING; Start at 16:00 Oxycodone/ Acetaminophen (Percocet (5/ 325)) 2 tab Q4H PRN PO PAIN Last administered on 06/11/16 05:51; Admin Dose 2 TAB; Start 06/09/16 at 16:00 Ketorolac Tromethamine 30 mg 30 mg Q6H PRN IV PAIN Last administered on 09:28; Admin Dose 30 MG; Start 06/09/16 at 16:00; Stop 06/12/16 at 15:59 Acetaminophen (Ofirmev 1000mg/ 100ml Iv) 100 ml @ 400 mls/hr Q6H IVPB Last administered on 06/11/16 09:20; Admin Dose 400 MLS/HR; Start 06/09/16 at 16:00 Pantoprazole (Protonix Iv) 40 mg DAILY@06 IV Last administered on 06/11/16 05: 47; Admin Dose 40 MG; Start 06/10/16 at 06:00 Nalbuphine HCl (Nubain) 4 mg Q4H PRN IV PRURITUS Last administered on 1/21/ 17at 01:43; Admin Dose 4 MG; Start 06/10/16 at 07:30 Enoxaparin Sodium (Lovenox) 40 mg DAILY SC Last administered on 06/11/16t 09:23 ; Admin Dose 40 MG; Start 06/10/16 at 09:00 CECI HUFF MD Jun 11, 2016 11:23
[2016-06-11] MEDS ORDERED: LOSARTAN 50 MG TAB PO SCH (11:30)
[2016-06-11] MEDS ORDERED: AMLODIPINE 10 MG TAB PO ONE (11:30)
--- NOTE | 2016-06-11 12:43 | PD.PPDC ---
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
--- NOTE | 2016-06-11 12:48 | DS ---
Date/Time of Note Date/Time of Note DATE: 06/11/16 TIME: 12:44 Discharge Summary Admission/Discharge Info Admit Date/Time Jun 09, 2016 at 18:23 Discharge Date/Time jun 11 2016 Final Diagnosis uterine fibroids Patient Condition: Stable Consults internal medicine for high blood pressure Procedures toal vaginal hystrectomy lynn plication ant Hx of Present Illness see hp Hospital Course IMPRESSION: 1. Status post vaginal hysterectomy. 2. Hypertension history. 3. History of cholecystectomy. 4. Stress incontinence history. plan ck labs per hand cell tuber Home Meds Reported Medications Losartan Potassium* (Losartan Potassium*) 50 Mg Tablet, 50 MG PO DAILY, #30 06/08/16 Follow-up Plan 2wwks at DR benitez Pending Labs Laboratory Tests Test 06/11/16 04:35 Basophils # 0.010^3/ul (0.0-0.1) Basophils % 0.5% (0.0-2.0) Eosinophils # 0.110^3/ul (0.0-0.5) Eosinophils % 1.7% (0.0-7.0) Hematocrit 32.1% (37.0-47.0) Hemoglobin 10.9g/dl (12.0-16.0) Lymphocytes # 3.210^3/ul (0.8-2.9) Lymphocytes % 38.7% (15.0-51.0) Mean Corpuscular Hemoglobin 32.3pg (29.0-33.0) Mean Corpuscular Hemoglobin Concent 33.9g/dl (32.0-37.0) Mean Corpuscular Volume 95.1fl (82.0-101.0) Mean Platelet Volume 9.2fl (7.4-10.4) Monocytes # 0.810^3/ul (0.3-0.9) Monocytes % 9.3% (0.0-11.0) Neutrophils # 4.110^3/ul (1.6-7.5) Neutrophils % 49.8% (39.0-77.0) Nucleated Red Blood Cells # 0.010^3/ul (0.0-0.0) Nucleated Red Blood Cells % 0.0/100WBC (0.0-0.0) Platelet Count 30759^3/UL (140-440) Red Blood Count 3.3710^6/ul (4.20-5.40) Red Cell Distribution Width 14.2% (11.5-14.5) White Blood Count 8.210^3/ul (4.8-10.8) NABIL BERNSTEIN MD Jun 11, 2016 12:48
[2016-06-12] MEDS ORDERED: AMLODIPINE 10 MG TAB PO SCH (09:00)
== END 2016-06-11 17:41 | disposition home or self-care (01) ==
LOC: SDS 10:55 → EDSTATUS 12:30 → SDS 18:20 → UNDOADMIN 18:23 → MS1 18:23 → SDS 06-11 17:41 → UNDODISIN 06-11 17:41
PROVIDERS: ATTEND Specialist
DX: N81.10 Cystocele, unspecified (principal); N39.3 Stress incontinence (female) (male); D25.9 Leiomyoma of uterus, unspecified
CPT/HCPCS: 57240; 58260; 80048; 85025; 86850; 86900; 86901; 87086; 88307; C9113; J0131; J0690; J1170; J1200; J1650; J1885; J2250; J2274; J2300; J2405; J2765; J2795; J3010; J7120; Z7512; Z7610

== ENCOUNTER 2016-10-05 22:06 | Emergency (ER) | payer OTHER ==
[~2016-10-05] VITALS: Ht 162.6 cm; Wt 88.0 kg
[~2016-10-05 22:06] MED LIST changes: -LACTATED RINGER'S 1,000 ML IV* SCH
[2016-10-05 22:10] VITALS: Ht 162.6 cm; Wt 88.0 kg
--- NOTE | 2016-10-06 00:05 | ERD ---
ER Documentation Chief Complaint Date/Time DATE: 10/06/16 TIME: 00:02 Chief Complaint lower abd pain x 2 weeks HPI Patient is a 56-year-old female who presents with gradual onset, constant, moderate, cramping pain to the suprapubic area and bilateral lower quadrants for 3 days. The patient reports that she had this pain intermittently for the last 2 weeks but it is now constant. She reports having a hysterectomy without oophorectomy in May 2016, and had no symptoms following surgery except for mild urinary incontinence. She denies vomiting, fever, vaginal discharge, dysuria, hematuria. She reports mild constipation. She has an appointment to see her PMD in 4 days. ROS All systems reviewed and are negative except as per history of present illness. Medications Home Meds Active Scripts Polyethylene Glycol* (Miralax*) 17 Gm Powd.pack, 17 GM PO DAILY Y for CONSTIPATION, #5 PACKET Prov:MANUEL RUIZ MD 10/06/16 Tramadol HCl (Tramadol HCl) 50 Mg Tablet, 50 MG PO Q6 Y for PAIN, #20 TAB Prov:MANUEL RUIZ MD 10/06/16 Reported Medications Ibuprofen* (Ibuprofen*) 800 Mg Tab, 800 MG PO Q6H Y for PAIN, TAB 10/06/16 Losartan Potassium* (Losartan Potassium*) 50 Mg Tablet, 50 MG PO DAILY, #30 06/08/16 Allergies Allergies: Coded Allergies: No Known Allergy (Unverified , 10/06/16) PMhx/Soc Past medical history: Hypertension Past surgical history: Hysterectomy Social history: Smokes cigarettes, drinks alcohol occasionally History of Surgery: Yes (GALLBLADDER REMOVAL 2015, CERVIX REMOVAL 1999) Anesthesia Reaction: No Hx Neurological Disorder: No Hx Respiratory Disorders: No Hx Cardiac Disorders: No Hx Psychiatric Problems: No Hx Miscellaneous Medical Probl: Yes (PAIN FROM UTERUS, VARIOUS INFECTIONS) Hx Alcohol Use: Yes Hx Substance Use: No Hx Tobacco Use: No Smoking Status: Never smoker FmHx Family History: No coronary disease, No diabetes Physical Exam Vitals Vital Signs Date Time Temp Pulse Resp B/P Pulse Ox O2 Delivery O2 Flow Rate FiO2 10/05/16 22:10 98.5 74 20 171/91 98 Physical Exam Const: Alert, no acute distress Head: Atraumatic Eyes: Normal Conjunctiva, no pallor, no icterus ENT: Normal External Ears, Nose and Mouth. Mucous membranes moist Neck: Full range of motion..~ No meningismus. Resp: Clear to auscultation bilaterally Cardio: Regular rate and rhythm, no murmurs Abd: Soft, mildly tender in the suprapubic area and bilateral lower quadrants , no rebound, no guarding, non distended. Normal bowel sounds Skin: No petechiae or rashes Back: No midline or flank tenderness Ext: No cyanosis, or edema Neur: Awake and alert Psych: Normal Mood and Affect Result Diagram: 10/06/16 0000 10/06/16 0000 Results 24 hrs Laboratory Tests Test 10/06/16 00:00 White Blood Count 8.110^3/ul Red Blood Count 4.0310^6/ul Hemoglobin 12.9g/dl Hematocrit 38.0% Mean Corpuscular Volume 94.3fl Mean Corpuscular Hemoglobin 32.0pg Mean Corpuscular Hemoglobin Concent 33.9g/dl Red Cell Distribution Width 13.3% Platelet Count 54974^3/UL Mean Platelet Volume 10.2fl Neutrophils % 47.3% Lymphocytes % 41.7% Monocytes % 8.7% Eosinophils % 1.5% Basophils % 0.6% Nucleated Red Blood Cells % 0.0/100WBC Neutrophils # 3.810^3/ul Lymphocytes # 3.410^3/ul Monocytes # 0.710^3/ul Eosinophils # 0.110^3/ul Basophils # 0.110^3/ul Nucleated Red Blood Cells # 0.010^3/ul Urine Color LT. YELLOW Urine Clarity CLEAR Urine pH 6.0 Urine Specific [place] 1.025 Urine Ketones NEGATIVE Urine Nitrite NEGATIVE Urine Bilirubin NEGATIVE Urine Urobilinogen 0.2 E.U./dL Urine Leukocyte Esterase NEGATIVE Urine Hemoglobin NEGATIVE Urine Glucose NEGATIVE% Urine Total Protein NEGATIVE Sodium Level 142mmol/L Potassium Level 4.1mmol/L Chloride Level 111mmol/L Carbon Dioxide Level 26mmol/L Anion Gap 9 Blood Urea Nitrogen 22mg/dl Creatinine 0.98mg/dl Glucose Level 97mg/dl Calcium Level 9.9mg/dl Current Medications Medications (Trade) Dose Ordered Sig/Yashira Route PRN Reason Start Time Stop Time Status Last Admin Dose Admin Tramadol HCl (Ultram) 50 mg ONCE ONCE PO 10/06/16 00:30 10/06/16 00:31 DC 10/06/16 00:12 Procedures/MDM MDM: Patient is a 56-year-old female who presents with intermittent pelvic pain for 1 month, now constant for 3 days. There is no report of fever, vomiting, dysuria. The patient has normal labs and UA. Her exam is nonfocal with tenderness throughout the lower abdomen, no rebound or guarding. The patient is status post hysterectomy. On further history, she reports that she has had the same pain in fact for years. She reports having this pain prior to her hysterectomy, and states that it was a motivating factor for having surgery. The history and exam are not concerning for appendicitis, bowel obstruction, diverticulitis. There is no evidence of UTI. I will treat the patient with tramadol, and MiraLAX for reported constipation. I advised her to follow-up closely with her CHIEF UNDERWRITER, and to return to the ER for any new or worsening symptoms. We discussed the option of ultrasound or CT scan, and I do not believe that these are likely to be of significant utility her to change immediate management. I did offer to attempt ultrasound to evaluate the ovaries , but the patient agreed to defer this exam. I have low suspicion for ovarian torsion. Departure Diagnosis: Primary Impression: Pelvic pain Condition: MANUEL Healy MD October 06, 2016 00:05
[2016-10-06] MEDS ORDERED: traMADol 50 MG TAB PO ONE (00:30)
[2016-10-06 00:31] LABS: ADD SCAN DIFF NO
[2016-10-06 00:34] LABS: ADD UMIC NO; BASOPHIL # 0.1 10^3/ul (0.0-0.1); BASOPHILS % 0.6 % (0.0-2.0); EOSINOPHILS # 0.1 10^3/ul (0.0-0.5); EOSINOPHILS % 1.5 % (0.0-7.0); HEMOGLOBIN 12.9 g/dl (12.0-16.0); LYMPHOCYTES # 3.4 10^3/ul (0.8-2.9); LYMPHOCYTES % 41.7 % (15.0-51.0); MEAN CORPUSCULAR HGB CONC 33.9 g/dl (32.0-37.0); MEAN CORPUSCULAR VOLUME 94.3 fl (82.0-101.0); MEAN PLATELET VOLUME 10.2 fl (7.4-10.4); MONOCYTE # 0.7 10^3/ul (0.3-0.9); MONOCYTES % 8.7 % (0.0-11.0); NEUTROPHIL # 3.8 10^3/ul (1.6-7.5); NEUTROPHILS % 47.3 % (39.0-77.0); PLATELET COUNT 270 10^3/UL (140-415); RED BLOOD COUNT 4.03 10^6/ul (4.20-5.40); RED CELL DISTRIBUTION WIDTH 13.3 % (11.5-14.5); URINE BILIRUBIN (Dip) NEGATIVE (NEGATIVE); URINE BLOOD (Dip) NEGATIVE (NEGATIVE); URINE COLOR LT. YELLOW (YELLOW); URINE GLUCOSE (Dip) NEGATIVE (NEGATIVE); URINE KETONES (Dip) NEGATIVE (NEGATIVE); URINE LEUKOCYTE ESTERASE (Dip) NEGATIVE (NEGATIVE); URINE NITRITE (Dip) NEGATIVE (NEGATIVE); URINE TOTAL PROTEIN (Dip) NEGATIVE (NEGATIVE); URINE UROBILINOGEN (Dip) 0.2 E.U./dL (0.1-1.0); WHITE BLOOD COUNT 8.1 10^3/ul (4.8-10.8)
[2016-10-06] MEDS ORDERED: IBUP800T25 PO (00:50)
[2016-10-06 00:57] LABS: CALCIUM 9.9 mg/dl (8.4-10.2); CREATININE 0.98 mg/dl (0.44-1.00); POTASSIUM 4.1 mmol/L (3.5-5.1)
[2016-10-06] MEDS ORDERED: TRAM50TA2 PO (01:15)
[2016-10-06] MEDS ORDERED: POLY17PO6 PO (01:15)
[2016-10-06 01:25] VITALS: BP 180/94; PULSE 72; RESP 18; TEMP 98.5
== END 2016-10-06 01:26 | disposition home or self-care (01) ==
LOC: E/R 22:06
DX: R10.2 Pelvic and perineal pain (principal); I10 Essential (primary) hypertension; F17.210 Nicotine dependence, cigarettes, uncomplicated
CPT/HCPCS: 36415; 80048; 81003; 85025; Z7502; Z7610; 99283

== ENCOUNTER 2017-01-11 16:16 | Emergency (ER) | payer SELFPAY ==
[~2017-01-11] VITALS: Wt 88.5 kg
[~2017-01-11 16:16] MED LIST changes: +IBUP800T25 PO; +POLY17PO6 PO; +TRAM50TA2 PO
== END 2017-01-11 19:48 | disposition left against medical advice (07) ==
LOC: E/R 16:16
DX: Z53.21 Procedure and treatment not carried out due to patient leaving prior to being seen by health care provider (principal)

== ENCOUNTER 2017-01-15 21:19 | Emergency (ER) | payer OTHER ==
[~2017-01-15] VITALS: Ht 167.6 cm; Wt 88.5 kg
[2017-01-15 21:20] VITALS: Ht 167.6 cm; Wt 88.5 kg
[2017-01-15] MEDS ORDERED: SOD CHLORIDE 0.9% 1,000 ML IV STA (21:42)
[2017-01-15] MEDS ORDERED: morphine 4 MG/ML VIAL IV STA (21:42)
[2017-01-15] MEDS ORDERED: ONDANSETRON 4 MG INJ IV STA (21:42)
[2017-01-15 22:07] LABS: BASOPHIL # 0.1 10^3/ul (0.0-0.1); BASOPHILS % 0.6 % (0.0-2.0); EOSINOPHILS # 0.1 10^3/ul (0.0-0.5); EOSINOPHILS % 0.8 % (0.0-7.0); HEMOGLOBIN 13.2 g/dl (12.0-16.0); LYMPHOCYTES # 2.6 10^3/ul (0.8-2.9); LYMPHOCYTES % 31.3 % (15.0-51.0); MEAN CORPUSCULAR HEMOGLOBIN 32.6 pg (29.0-33.0); MEAN CORPUSCULAR HGB CONC 34.7 g/dl (32.0-37.0); MEAN CORPUSCULAR VOLUME 93.8 fl (82.0-101.0); MEAN PLATELET VOLUME 10.6 fl (7.4-10.4); MONOCYTE # 0.6 10^3/ul (0.3-0.9); MONOCYTES % 7.3 % (0.0-11.0); NEUTROPHILS % 59.8 % (39.0-77.0); PLATELET COUNT 275 10^3/UL (140-415); RED BLOOD COUNT 4.05 10^6/ul (4.20-5.40); RED CELL DISTRIBUTION WIDTH 13.9 % (11.5-14.5); WHITE BLOOD COUNT 8.4 10^3/ul (4.8-10.8)
[2017-01-15 22:12] LABS: ADD UMIC NO; UR ASCORBIC ACID NEGATIVE (NEGATIVE); UR BILIRUBIN (Dip) NEGATIVE (NEGATIVE); UR BLOOD (Dip) NEGATIVE (NEGATIVE); UR CLARITY SLIGHTLY CLOUDY (CLEAR); UR COLOR YELLOW (YELLOW); UR GLUCOSE (Dip) NEGATIVE (NEGATIVE); UR KETONES (Dip) NEGATIVE (NEGATIVE); UR LEUKOCYTE ESTERASE (Dip) NEGATIVE Leu/ul (NEGATIVE); UR MUCUS FEW /HPF (NONE SEEN); UR NITRITE (Dip) NEGATIVE (NEGATIVE); UR RBC 1 /HPF (0-5); UR SPECIFIC GRAVITY (Dip) 1.028 (1.003-1.030); UR SQUAMOUS EPITHELIAL CELL FEW /HPF (FEW); UR TOTAL PROTEIN (Dip) NEGATIVE (NEGATIVE); UR UROBILINOGEN (Dip) NEGATIVE (NEGATIVE)
[2017-01-15] MEDS ORDERED: HYDROmorphONE 1 MG/ML SYG IV STA ×2 (22:28→23:31)
[2017-01-15 22:37] LABS: ALBUMIN 4.1 g/dl (3.3-4.9); ALBUMIN/GLOBULIN RATIO 1.2; CREATININE 1.03 mg/dl (0.44-1.00); POTASSIUM 3.9 mmol/L (3.5-5.1); TOTAL PROTEIN 7.5 g/dl (6.1-8.1)
--- NOTE | 2017-01-15 22:42 | RADRPT ---
PROCEDURE: CT Abdomen and Pelvis without contrast. CLINICAL INDICATION: Abdominal and pelvic pain. Right-sided pain. TECHNIQUE: CT scan of the abdomen and pelvis without contrast was performed. Coronal and sagittal reformatted images were obtained from the axial source images. Images were reviewed on a high-[employer] PACS workstation. Total exam DLP is 944.14 mGy-cm. CTDIvol is 17.05 mGy. One or more of the f ollowing dose reduction techniques were used: Automated exposure control, adjustment of the mA and/o r kV according to patient size, use of iterative reconstruction technique. COMPARISON: None. FINDINGS: The lung bases are normal. There is no pleural effusion. The liver is normal in size and attenuation. There is no focal hepatic lesion. The gallbladder is surgically absent with clips noted in the gallbladder bed. The bile ducts are no rmal. The spleen is normal in size. There is no focal splenic lesion. Both adrenals are normal with no enlargement or mass. The pancreas is unremarkable with no mass or evidence of pancreatitis. There is no renal mass or hydronephrosis. There is no renal calculus or ureteral calculus. The abdominal aorta is not dilated. There is calcification in the aorta consistent with atheroscler osis. There is no retroperitoneal lymphadenopathy or mass. There is no pelvic lymphadenopathy or mass. The bladder and distal ureters are normal. The periappendiceal region is unremarkable with no evidence of appendicitis. The bowel and mesentery are normal. There is no free fluid or free gas. There are degenerative changes of the spine. There are bilateral pars defects at L4. There is grad e 1 anterolisthesis at L4-5. IMPRESSION: 1. Status post cholecystectomy. 2. Atherosclerosis. 3. Degenerative changes of the spine. 4. Bilateral pars defects at L4 and grade 1 anterolisthesis at L4-5. 5. Otherwise unremarkable noncontrast CT scan of the abdomen and pelvis. RPTAT: QQ .Edvin Cardona MD, MD Date Time Electronically viewed and signed by .Edvin Cardona MD, on 01/15/2017 22:42 .R/
[2017-01-15 23:39] VITALS: BP 122/67; PULSE 71; RESP 18; TEMP 98.3
--- NOTE | 2017-01-16 01:44 | ERD ---
ER Documentation Chief Complaint Date/Time DATE: 01/16/17 TIME: 01:42 Chief Complaint RLQ belly pain x 3days, hx uterine fibroids HPI Patient is a 56-year-old female with hypertension who presents with abdominal pain. The symptoms started on Monday. The pain comes and goes. The pain is in the right lower quadrant. The patient said the pain was worse today and she tried ibuprofen. She has no fevers. Her primary doctor is Dr. Fox. ROS All systems reviewed and are negative except as per history of present illness. Medications Home Meds Active Scripts Polyethylene Glycol* (Miralax*) 17 Gm Powd.pack, 17 GM PO DAILY Y for CONSTIPATION, #5 PACKET Prov:MANUEL RUIZ MD 10/06/16 Tramadol HCl (Tramadol HCl) 50 Mg Tablet, 50 MG PO Q6 Y for PAIN, #20 TAB Prov:MANUEL RUIZ MD 10/06/16 Reported Medications Ibuprofen* (Ibuprofen*) 800 Mg Tab, 800 MG PO Q6H Y for PAIN, TAB 10/06/16 Losartan Potassium* (Losartan Potassium*) 50 Mg Tablet, 50 MG PO DAILY, #30 06/08/16 Allergies Allergies: Coded Allergies: No Known Allergy (Unverified , 10/06/16) PMhx/Soc History of Surgery: Yes (hysty, gallbladder) Anesthesia Reaction: No Hx Neurological Disorder: No Hx Respiratory Disorders: No Hx Cardiac Disorders: Yes (htn) Hx Psychiatric Problems: No Hx Miscellaneous Medical Probl: No Hx Alcohol Use: Yes Hx Substance Use: No Hx Tobacco Use: Yes Smoking Status: Current every day smoker FmHx Family History: No diabetes Physical Exam Vitals Vital Signs Date Time Temp Pulse Resp B/P Pulse Ox O2 Delivery O2 Flow Rate FiO2 01/15/17 23:39 98.3 71 18 122/67 99 Room Air 01/15/17 21:20 97.8 84 20 150/76 97 Physical Exam Const: Mild distress secondary to abdominal pain Head: Atraumatic Eyes: Normal Conjunctiva ENT: Normal External Ears, Nose and Mouth. Neck: Full range of motion..~ No meningismus. Resp: Clear to auscultation bilaterally Cardio: Regular rate and rhythm, no murmurs Abd: Soft, Right lower quadrant tenderness to palpation without rebound or guarding Skin: No petechiae or rashes Back: No midline or flank tenderness Ext: No cyanosis, or edema Neur: Awake and alert Psych: Normal Mood and Affect Result Diagram: 01/15/17214901/15/172149 Results 24 hrs Laboratory Tests Test 01/15/17 21:50 White Blood Count 8.410^3/ul Red Blood Count 4.0510^6/ul Hemoglobin 13.2g/dl Hematocrit 38.0% Mean Corpuscular Volume 93.8fl Mean Corpuscular Hemoglobin 32.6pg Mean Corpuscular Hemoglobin Concent 34.7g/dl Red Cell Distribution Width 13.9% Platelet Count 03633^3/UL Mean Platelet Volume 10.6fl Neutrophils % 59.8% Lymphocytes % 31.3% Monocytes % 7.3% Eosinophils % 0.8% Basophils % 0.6% Nucleated Red Blood Cells % 0.0/100WBC Neutrophils # (Manual) 5.010^3/ul Lymphocytes # 2.610^3/ul Monocytes # 0.610^3/ul Eosinophils # 0.110^3/ul Basophils # 0.110^3/ul Nucleated Red Blood Cells # 0.010^3/ul Urine Color YELLOW Urine Clarity SLIGHTLY CLOUDY Urine pH 5.0 Urine Specific [place] 1.028 Urine Ketones NEGATIVEmg/dL Urine Nitrite NEGATIVEmg/dL Urine Bilirubin NEGATIVEmg/dL Urine Urobilinogen NEGATIVEmg/dL Urine Leukocyte Esterase NEGATIVELeu/ul Urine Microscopic RBC 1/HPF Urine Microscopic WBC 1/HPF Urine Squamous Epithelial Cells FEW/HPF Urine Mucus FEW/HPF Urine Hemoglobin NEGATIVEmg/dL Urine Glucose NEGATIVEmg/dL Urine Total Protein NEGATIVEmg/dl Sodium Level 142mmol/L Potassium Level 3.9mmol/L Chloride Level 105mmol/L Carbon Dioxide Level 24mmol/L Anion Gap 17 Blood Urea Nitrogen 23mg/dl Creatinine 1.03mg/dl Glucose Level 144mg/dl Calcium Level 10.0mg/dl Total Bilirubin 0.0mg/dl Direct Bilirubin 0.00mg/dl Indirect Bilirubin 0.0mg/dl Aspartate Amino Transf (AST/SGOT) 17IU/L Alanine Aminotransferase (ALT/SGPT) 25IU/L Alkaline Phosphatase 117IU/L Total Protein 7.5g/dl Albumin 4.1g/dl Globulin 3.40g/dl Albumin/Globulin Ratio 1.20 Lipase 63U/L Current Medications Medications (Trade) Dose Ordered Sig/Yashira Route PRN Reason Start Time Stop Time Status Last Admin Dose Admin Sodium Chloride (NS) 1,000 ml @ 1,000 mls/hr Q1H STAT IV 01/15/17 21:42 01/15/17 22:41 DC Morphine Sulfate (morphine) 4 mg ONCE STAT IV 01/15/17 21:42 01/15/17 21:43 DC Ondansetron HCl (Zofran Inj) 4 mg ONCE STAT IV 01/15/17 21:42 01/15/17 21:43 DC Hydromorphone HCl (Dilaudid) 1 mg ONCE STAT IV 01/15/17 22:28 01/15/17 22:29 DC Hydromorphone HCl (Dilaudid) 1 mg ONCE STAT IV 01/15/17 23:31 01/15/17 23:32 DC 01/15/17 23:39 Procedures/MDM CT abdomen pelvis shows no acute appendicitis or bowel obstruction per radiology. Smoking Cessation Therapy: Pt. was lectured for greater than 3 minutes on the health risks of continued smoking and the benefits of cessation. Patient is a 56-year-old female with hypertension who presents with abdominal pain. She had laboratory studies done and a CT scan of the abdomen and pelvis which were basically negative. At this point I doubt appendicitis, cholecystitis, pancreatitis, or bowel obstruction. I believe outpatient management is appropriate. She will be given Foster and Zofran for her symptoms and can return for any worsening symptoms. She should follow-up with her primary doctor within 24 hours for reevaluation. She was given copies of her laboratory studies and CT scan report prior to discharge. Departure Diagnosis: Primary Impression: Abdominal pain Abdominal location: right lower quadrant Qualified Code: R10.31 - Right lower quadrant abdominal pain Condition: Fair Patient Instructions: Abdominal Pain Additional Instructions: FOLLOW UP WITH YOUR PRIMARY CARE PHYSICIAN TOMORROW.Return to this facility if you are not improving as expected. MARIA DOLORES AGRAWAL MD Jan 16, 2017 01:44
== END 2017-01-16 00:02 | disposition home or self-care (01) ==
LOC: E/R 21:19
DX: R10.31 Right lower quadrant pain (principal); I10 Essential (primary) hypertension; F17.210 Nicotine dependence, cigarettes, uncomplicated
CPT/HCPCS: 36415; 74176; 80053; 81001; 83690; 85025; 96374; J1170; J2270; J2405; J7030; Z7502; 81003